=== PATIENT | female | born 1990 ===

== ENCOUNTER 2022-07-24 16:40 | Inpatient (IN) | payer OTHER ==
[~2022-07-24] VITALS: Ht 175.3 cm; Wt 97.5 kg
[2022-07-24 17:00] VITALS: BP 138/79
[2022-07-24] MEDS ORDERED: LACTATED RINGERS 1,000 ML IV SCH (19:45)
[2022-07-24] MEDS ORDERED: METHYLERGONOVINE 0.2 MG/ML AMP IM PRN (19:50)
[2022-07-24] MEDS ORDERED: CARBOPROST 250 MCG/ML AMP IM PRN (19:50)
[2022-07-24 20:10] LABS: BASOPHILS % (AUTO) 0.3 % (0.0-2.0); EOSINOPHILS # (AUTO) 0.1 K/uL (0-0.4); EOSINOPHILS % (AUTO) 0.5 % (0.0-4.0); HEMATOCRIT 35.5 % (36-48); HEMOGLOBIN 11.9 g/dL (12.0-16.0); LYMPHOCYTES # (AUTO) 1.7 K/uL (2.5-16.5); LYMPHOCYTES % (AUTO) 13.9 % (20.5-51.1); MEAN CORPUSCULAR HEMOGLOBIN 29 pg (27-31); MEAN CORPUSCULAR HGB CONC 34 g/dL (33-37); MEAN CORPUSCULAR VOLUME 85.7 fL (80-94); MONOCYTES # (AUTO) 0.8 K/uL (0.8-1.0); MONOCYTES % (AUTO) 6.7 % (1.7-9.3); NEUTROPHILS # (AUTO) 9.5 K/uL (1.8-7.7); NEUTROPHILS % (AUTO) 78.6 % (42.2-75.2); PLATELET COUNT (AUTO) 237 K/uL (140-450); RED BLOOD CELL COUNT(AUTO) 4.14 MIL/uL (4.20-5.40); RED CELL DISTRIBUTION WIDTH 13.7 % (11.6-13.7); WHITE BLOOD COUNT (AUTO) 12.1 K/uL (4.8-10.8)
[2022-07-24 20:30] LABS: ALBUMIN 2.4 g/dL (3.4-5.0); CARBON DIOXIDE 20.8 mmol/L (21-32); CREATININE 0.7 mg/dL (0.6-1.3); POTASSIUM 3.8 mmol/L (3.5-5.1); PROTHROMBIN TIME 9.5 secs (10.8-13.4); TOTAL BILIRUBIN 0.2 mg/dL (0.0-1.0)
[2022-07-24 20:45] LABS: BILIRUBIN,URINE NEGATIVE (NEGATIVE); BLOOD, URINE NEGATIVE (NEGATIVE); COLOR,URINE YELLOW (YELLOW); LEUKOCYTE ESTERASE ,URINE TRACE (NEGATIVE); NITRITE, URINE NEGATIVE (NEGATIVE); UGLUCOSE NEGATIVE (NEGATIVE)
[2022-07-24 20:57] LABS: APPEARANCE,URINE HAZY (CLEAR)
[2022-07-24 21:17] LABS: RBC,URINE NONE SEEN /HPF (0-5); WBC,URINE 0-5 /HPF (0-5)
[2022-07-25] MEDS ORDERED: PNV91TAB8 PO (21:03)
== END 2022-07-24 23:40 | disposition home or self-care (01) | DRG 566 ==
LOC: MLD 16:40 → OBSVTOIN 19:44
PROVIDERS: ADMIT Obstetrics & Gynecology; ATTEND Obstetrics & Gynecology
DX: O47.1 False labor at or after 37 completed weeks of gestation (principal); F32.A Depression, unspecified; O99.343 Other mental disorders complicating pregnancy, third trimester; F41.9 Anxiety disorder, unspecified; Z20.822 Contact with and (suspected) exposure to COVID-19; Z3A.39 39 weeks gestation of pregnancy; Z83.6 Family history of other diseases of the respiratory system; Z83.3 Family history of diabetes mellitus
CPT/HCPCS: 36415; 80053; 81001; 85025; 85610; 85730; 86592; 86886; 86900; 86901

== ENCOUNTER 2022-07-30 18:05 | Emergency (ER) | payer OTHER ==
[~2022-07-30] VITALS: Ht 175.3 cm; Wt 90.3 kg
[~2022-07-30 18:05] MED LIST: PNV91TAB8 PO
[2022-07-30 18:23] VITALS: BP 131/76
--- NOTE | 2022-07-30 18:49 | NUR ---
PT C/O DIZZINESS, LACK OF APETITE, NAUSEATED S/P GIVING 07/26
--- NOTE | 2022-07-30 20:00 | NUR ---
ER physician at bedside assessing patient.
[2022-07-30 20:36] LABS: BASOPHILS % (AUTO) 0.3 % (0.0-2.0); EOSINOPHILS # (AUTO) 0.1 K/uL (0-0.4); EOSINOPHILS % (AUTO) 1.2 % (0.0-4.0); HEMATOCRIT 31.4 % (36-48); HEMOGLOBIN 10.5 g/dL (12.0-16.0); LYMPHOCYTES # (AUTO) 1.2 K/uL (2.5-16.5); LYMPHOCYTES % (AUTO) 18.2 % (20.5-51.1); MEAN CORPUSCULAR HEMOGLOBIN 29 pg (27-31); MEAN CORPUSCULAR HGB CONC 33 g/dL (33-37); MEAN CORPUSCULAR VOLUME 86.4 fL (80-94); MONOCYTES # (AUTO) 0.7 K/uL (0.8-1.0); MONOCYTES % (AUTO) 10.8 % (1.7-9.3); NEUTROPHILS # (AUTO) 4.7 K/uL (1.8-7.7); NEUTROPHILS % (AUTO) 69.5 % (42.2-75.2); PLATELET COUNT (AUTO) 276 K/uL (140-450); RED BLOOD CELL COUNT(AUTO) 3.64 MIL/uL (4.20-5.40); RED CELL DISTRIBUTION WIDTH 14.4 % (11.6-13.7); WHITE BLOOD COUNT (AUTO) 6.8 K/uL (4.8-10.8)
[2022-07-30 20:53] LABS: ALBUMIN 2.5 g/dL (3.4-5.0); ANION GAP 14.2 (8-16); CARBON DIOXIDE 24.7 mmol/L (21-32); CREATININE 0.6 mg/dL (0.6-1.3); POTASSIUM 3.9 mmol/L (3.5-5.1); TOTAL BILIRUBIN 0.2 mg/dL (0.0-1.0)
[2022-07-30] MEDS ORDERED: FAMO-90 PO (21:06)
[2022-07-30] MEDS ORDERED: FERR325E14 PO (21:06)
[2022-07-30] MEDS ORDERED: CEPH-588 PO (21:17)
[2022-07-30] MEDS ORDERED: METO-485 PO (21:17)
[2022-07-30 21:41] VITALS: BP 128/75
== END 2022-07-30 21:42 | disposition home or self-care (01) ==
LOC: MED 18:05
DX: O90.9 Complication of the puerperium, unspecified (principal); O90.81 Anemia of the puerperium; O86.20 Urinary tract infection following delivery, unspecified; R53.81 Other malaise; Z79.899 Other long term (current) drug therapy
CPT/HCPCS: 36415; 80053; 81002; 83690; 85025; 99283